=== PATIENT | male | born 1980 | race Caucasian/White ===

== ENCOUNTER 2017-03-30 14:21 | Emergency (ER) | payer OTHER ==
[~2017-03-30] VITALS: Ht 182.9 cm; Wt 99.6 kg
[2017-03-30] MEDS ORDERED: ULTRAM50 MG PO (15:06)
[2017-03-30] MEDS ORDERED: FLEXERIL10 MG PO (15:06)
[2017-03-30] MEDS ORDERED: MEDROL DOSEPAK4 MG PO (15:06)
[2017-03-30 15:16] VITALS: BP 146/92
== END 2017-03-30 15:17 | disposition home or self-care (01) ==
LOC: EME 14:21
DX: M54.41 Lumbago with sciatica, right side (principal); G89.29 Other chronic pain; I10 Essential (primary) hypertension; F17.200 Nicotine dependence, unspecified, uncomplicated
CPT/HCPCS: 99281; 99283; J1885

== ENCOUNTER 2017-04-12 04:57 | Emergency (ER) | payer OTHER ==
[~2017-04-12] VITALS: Ht 182.9 cm; Wt 100.2 kg
[~2017-04-12 04:57] MED LIST: FLEXERIL10 MG PO; MEDROL DOSEPAK4 MG PO; ULTRAM50 MG PO
[2017-04-12 05:32] LABS: APPEARANCE SL.HAZY ((CLEAR)); BILIRUBIN NEGATIVE; BLOOD LARGE; COLOR YELLOW ((YELLOW)); GLUCOSE (STRIP) NEGATIVE; KETONES 5; LEUKOCYTES TRACE; NITRITE NEGATIVE; PROTEIN (STRIP) 100; SPECIFIC GRAVITY 1.036 (1.000-1.030); UROBILINOGEN 0.2 MG/DL (0.2-1.0)
[2017-04-12 05:38] LABS: BACTERIA NONE SEEN /HPF; EPITHELIAL CELLS NONE SEEN /HPF; HYALINE CASTS 15-20 /LPF; MUCUS 4+ /LPF; RED BLOOD CELLS TNTC /HPF (0-5); UCUL ADDED? YES; WHITE BLOOD CELLS 0-5 /HPF (0-5)
[2017-04-12 05:40] LABS: ALBUMIN 4.1 g/dL (3.2-4.8); CHLORIDE 110 mEq/L (99-109); POTASSIUM 3.9 mEq/L (3.7-5.4); SODIUM 139 mEq/L (136-147)
[2017-04-12 05:42] LABS: GLUCOSE 102 mg/dL (70-99); TOTAL PROTEIN 6.4 g/dL (6.4-8.3)
[2017-04-12 05:44] LABS: TOTAL BILIRUBIN 0.6 mg/dL (0.0-1.0)
[2017-04-12 05:46] LABS: ALKALINE PHOSPHATASE 85 IU/L (3-129); CREATININE 0.9 mg/dL (0.6-1.3); GFR ESTIMATE (CALCULATED) > 59 mL/min/ (58.99-99999)
[2017-04-12 05:47] LABS: UREA NITROGEN (BUN) 16 mg/dL (9-23)
[2017-04-12 05:48] LABS: AST (GOT) 16 IU/L (2-34)
[2017-04-12 05:49] LABS: ALT (GPT) 18 IU/L (3-49)
[2017-04-12 05:56] LABS: HEMATOCRIT 41.6 % (38.0-50.0); HEMOGLOBIN 14.2 G/DL (12.5-16.6); MCH 28.4 PG (29.0-34.0); MCHC 34.1 G/DL (30.0-36.0); MCV 83.2 FL (86-99); PLATELET COUNT 295 K/uL (156-360); RBC DIS.WIDTH-CV 13.2 % (11.8-14.6); RBC DIS.WIDTH-SD 39.8 % (39-53); WHITE BLOOD COUNT 14.2 K/uL (4.1-10.2)
[2017-04-12] MEDS ORDERED: TORADOL10 MG PO (09:09)
[2017-04-12 09:24] VITALS: BP 104/64
== END 2017-04-12 09:26 | disposition home or self-care (01) ==
LOC: EME 04:57
DX: R10.31 Right lower quadrant pain (principal); R31.9 Hematuria, unspecified; Z87.442 Personal history of urinary calculi; F17.200 Nicotine dependence, unspecified, uncomplicated; Z71.6 Tobacco abuse counseling
CPT/HCPCS: 74018; 76770; 80053; 81003; 85027; 87086; 99281; 99284; J1885; J2405; J3010; J7030